=== PATIENT | female | born 1995 ===

== ENCOUNTER 2018-01-13 20:55 | Emergency (ER) | payer BC ==
[2018-01-13] MEDS ORDERED: Ciprofloxacin TAB* 250 MG PO ONE (21:31)
[2018-01-13] MEDS ORDERED: Ciprofloxacin TAB* 500 MG PO ONE (21:40)
--- NOTE | 2018-01-13 21:51 | UC ---
Complaint Female HPI - HPI Summary HPI Summary: This is an otherwise healthy 22 yo female who presents with c/o dysuria, frequency and urgency. She had similar symptoms last week and called [facility] and received an antibiotic prescription. She did not provide a urine sample at that time. She took macrobid for 5d and symptoms resolved. She completed abx 2d ago and her symptoms recurred starting today. No associated n/v, fevers, abd pain or back pain. No vaginal discharge, itching or odor. - History Of Current Complaint Chief Complaint: UCGU Stated Complaint: POSS UTI Hx Last Menstrual Period: ended IUD 1 month ago, on BCP 1 month Pain Intensity: 4 - Allergies/Home Medications Allergies/Adverse Reactions: Allergies Allergy/AdvReac Type Severity Reaction Status Date / Time No Known Allergies Allergy Verified 01/13/18 21:07 Home Medications: Home Medications Naproxen Sodium [Aleve] 440 mg PO Q8HR PRN 01/13/18 [History Confirmed 01/13/18] [facility] Bcp 1 tab PO DAILY 01/13/18 [History] PMH/Surg Hx/FS Hx/Imm Hx Previously Healthy: Yes - Surgical History Surgical History: None - Family History Known Family History: Positive: None - Social History Alcohol Use: None Substance Use Type: None Smoking Status (MU): Never Smoked Tobacco Review of Systems Constitutional: Negative Skin: Negative Eyes: Negative ENT: Negative Respiratory: Negative Cardiovascular: Negative Gastrointestinal: Negative Genitourinary: Dysuria, Frequency, Urgency Motor: Negative Neurovascular: Negative Musculoskeletal: Negative Neurological: Negative Psychological: Negative Is Patient Immunocompromised?: No All Other Systems Reviewed And Are Negative: Yes Physical Exam Triage Information Reviewed: Yes Appearance: Well-Appearing Vital Signs: Initial Vital Signs Temp 98.3 F 01/13/18 21:08 Pulse 85 01/13/18 21:08 Resp 18 01/13/18 21:08 BP 126/67 01/13/18 21:08 Pulse Ox 100 01/13/18 21:08 Vital Signs Reviewed: Yes ENT Exam: Normal Neck exam: Normal Neck: Positive: Supple Respiratory Exam: Normal Cardiovascular Exam: Normal Cardiovascular: Positive: RRR Abdominal Exam: Normal Abdomen Description: Positive: Nontender. Negative: CVA Tenderness (R), CVA Tenderness (L) Bowel Sounds: Positive: Present Musculoskeletal Exam: Normal Musculoskeletal: Positive: Strength Intact Neurological Exam: Normal Psychological Exam: Normal Skin Exam: Normal Diagnostics - Laboratory Diagnostic Studies Completed/Ordered: UA - + blood, + LE Complaint Female Dx - Course Course Of Treatment: Otherwise healthy 22 yo female with recurrent UTI symptoms after completing 5d of Macrobid. Likely represents a resistent organism. Urine sent for culture. Prescribed 5d of Cipro and recommended follow up with PCP for referral to urology if symptoms recur or do not improve. - Differential Dx/Diagnosis Differential Diagnosis/HQI/PQRI: Cervicitis, Sexually Transmitted Disease, Urinary Tract Infection Provider Diagnoses: 1. UTI Discharge - Sign-Out/Discharge Documenting (check all that apply): Discharge/Admit/Transfer - Discharge Plan Condition: Stable Disposition: HOME Prescriptions: Ciprofloxacin HCl [Cipro] 500 mg PO BID #10 tablet Patient Education Materials: Urinary Tract Infection in Women (DC) Referrals: No Primary Care Phys,NOPCP [Primary Care Provider] - Additional Instructions: Instructions: 1. Please take antibiotics as directed 2. If your symptoms do not improve or recur, please follow up with your primary care provider for a referral to urology - Billing Disposition and Condition Condition: STABLE Disposition: HOME
--- NOTE | 2018-01-15 15:11 | UC ---
- Progress Note Progress Note: neg urine culture stop antibiotics recheck with PCP prn Discharge - Sign-Out/Discharge Documenting (check all that apply): Discharge/Admit/Transfer - Discharge Plan Condition: Stable Disposition: HOME Prescriptions: Ciprofloxacin HCl [Cipro] 500 mg PO BID #10 tablet Patient Education Materials: Urinary Tract Infection in Women (DC) Referrals: No Primary Care Phys,NOPCP [Primary Care Provider] - Additional Instructions: Instructions: 1. Please take antibiotics as directed 2. If your symptoms do not improve or recur, please follow up with your primary care provider for a referral to urology - Billing Disposition and Condition Condition: STABLE Disposition: HOME
== END 2018-01-13 21:50 | disposition home or self-care (01) ==
LOC: UCEAST 20:55
DX: N39.0 Urinary tract infection, site not specified (principal)
CPT/HCPCS: 81003; 87086; 99202; A9270-GY; G0463